=== PATIENT | female | born 1975 | race Two or more races ===

== ENCOUNTER 2021-01-11 19:46 | Emergency (ER) | payer OTHER ==
[~2021-01-11] VITALS: Ht 160 cm; Wt 81.6 kg
[2021-01-11 20:28] LABS: Basophils # (auto) 0.1 10 ^3/uL (0-0.2); Basophils % (auto) 0.8 % (0.0-2.0); Eosinophils # (auto) 0.1 10 ^3/uL (0-0.8); Hematocrit 40.8 % (36.0-46.0); Hemoglobin 13.3 g/dL (12.2-16.2); Lymphocytes # (auto) 3.1 10 ^3/uL (0.4-5.4); Lymphocytes % (auto) 29.7 % (10.0-50.0); Mean Corpuscular Hemoglobin 28.5 pg (28.0-32.0); Mean Corpuscular Hgb Conc. 32.6 g/dL (32.0-36.0); Mean Corpuscular Volume 87.7 fL (80.0-100.0); Monocytes # (auto) 0.9 10 ^3/uL (0-1.3); Monocytes % (auto) 8.4 % (0.0-12.0); Neutrophils # (auto) 6.2 10 ^3/uL (1.6-8.6); Neutrophils % (auto) 60.1 % (37.0-80.0); Nucleated Red Blood Cells % 0.1 %; Red Blood Cells 4.65 10^6/uL (4.0-5.20); Red Cell Distribution Width 13.3 % (11.8-14.3); White Blood Cell 10.3 10^3/uL (4.4-10.8)
[2021-01-11] MEDS ORDERED: SODIUM CHLORIDE 0.9% 1,000 ML IV ONE (20:30)
[2021-01-11] MEDS ORDERED: ALUM & MAG HYDROX-SIMETH LIQ(MAALOX) 30 ML PO ONE (20:30)
[2021-01-11] MEDS ORDERED: IOHEXOL 300 MG/ML 100ML BOTTLE IJ ONE (20:44)
[2021-01-11 20:50] LABS: Amylase 62 U/L (25-115); Anion Gap 4 (5-15); Blood Urea Nitrogen 17 mg/dL (7-18); Calcium 9.1 mg/dL (8.5-10.1); Carbon Dioxide 29 mmol/L (21-32); Chloride 106 mmol/L (98-107); Glucose 105 mg/dL (74-106); Lipase 247 U/L (73-393); Potassium 4.2 mmol/L (3.5-5.1); Sodium 139 mmol/L (136-145)
[2021-01-11 20:57] LABS: BUN/Creatinine Ratio 20.7; GFR African American 97 mL/min; GFR Non-African American 80 mL/min
[2021-01-11 23:10] LABS: Urine Bacteria NONE SEEN /hpf (None Seen); Urine Blood Negative /uL (Negative); Urine Mucus FEW (None Seen); Urine WBC 1 /hpf (0 - 5)
[2021-01-11 23:12] LABS: Urine Specific Gravity > 1.050 (1.001-1.035)
[2021-01-12 00:24] VITALS: BP 130/87
[2021-01-13] MEDS ORDERED: [UNRECOGNIZED DRUG - CODE] IV (10:49)
[2021-01-13] MEDS ORDERED: HYDR-4188 PO (10:49)
[2021-01-13] MEDS ORDERED: METO25TA36 PO (10:57)
[2021-01-13] MEDS ORDERED: CHOL1CAP55 PO (10:57)
[2021-01-13] MEDS ORDERED: ASPI-543 PO (10:57)
[2021-01-13] MEDS ORDERED: MAGN400C3 PO (11:00)
[2021-01-13] MEDS ORDERED: ASCO100076 PO (11:00)
[2021-01-13] MEDS ORDERED: THIA250T7 PO (11:00)
[2021-01-13] MEDS ORDERED: ALBU108A5 IN (11:01)
== END 2021-01-12 00:29 | disposition home or self-care (01) ==
LOC: ER 19:48
DX: K92.2 Gastrointestinal hemorrhage, unspecified (principal); Z91.010 Allergy to peanuts; Z85.41 Personal history of malignant neoplasm of cervix uteri; Z90.710 Acquired absence of both cervix and uterus
CPT/HCPCS: 36415; 74177; 76705; 80048; 81001; 82150; 83605; 83690; 84484; 85025; 93005; 99285; Q9967

== ENCOUNTER 2021-02-16 06:53 | Day surgery (SDC) | payer OTHER ==
[~2021-02-16] VITALS: Ht 165.1 cm; Wt 79.8 kg
[2021-02-16] VITALS (8 sets, daily range): BP systolic 101–116; BP diastolic 60–78
[~2021-02-16 06:53] MED LIST: ALBU108A5 IN; ASCO100076 PO; ASPI-543 PO; BUDE1AER4 IN; CHOL50007 PO; DICL1GEL50 TOP; HYDR-4188 PO; MAGN400T40 PO; METO25TA36 PO; THIA250T7 PO; [UNRECOGNIZED DRUG - CODE] IV
[2021-02-16] MEDS ORDERED: IODIXANOL 320MG/ML 100ML BTL IV ONE (07:19)
[2021-02-16] MEDS ORDERED: LIDOCAINE 2%HCL (LOCAL ANESTH.) INJ 20ML MDV ONE (07:19)
[2021-02-16] MEDS ORDERED: HEPARIN SODIUM (PORCINE) 5000 UNITS/ML 1ML VIAL ONE (08:12)
[2021-02-16] MEDS ORDERED: ANGIOMAX 250 MG VIAL IV ONE (08:12)
[2021-02-16] MEDS ORDERED: fentaNYL CITRATE 100 MCG/2 ML VL ONE (08:13)
[2021-02-16] MEDS ORDERED: SODIUM CHL 0.9% 0 ML ONE (08:13)
[2021-02-16] MEDS ORDERED: VERAPAMIL 2.5MG/ML INJ 2ML VIAL IV ONE (08:13)
[2021-02-16] MEDS ORDERED: MIDAZOLAM HCL 2MG/2ML 2ml VIAL (1mg/ml) ONE (08:13)
== END 2021-02-16 11:15 | disposition home or self-care (01) ==
LOC: CATH 06:53
PROVIDERS: ATTEND Internal Medicine Cardiovascular Disease
DX: R94.39 Abnormal result of other cardiovascular function study (principal); I25.2 Old myocardial infarction; J45.909 Unspecified asthma, uncomplicated; Z20.822 Contact with and (suspected) exposure to COVID-19; Z91.010 Allergy to peanuts; Z88.8 Allergy status to other drugs, medicaments and biological substances; Z68.29 Body mass index [BMI] 29.0-29.9, adult; Z79.899 Other long term (current) drug therapy
CPT/HCPCS: 93458; C1887; C1894; J1644; J2250; J3010; J7030; Q9967; U0003; 99152